=== PATIENT | female | born 1950 | race Caucasian/White ===

== ENCOUNTER 2018-02-23 18:01 | Inpatient (IN) | payer OTHER ==
[~2018-02-23] VITALS: Ht 161.3 cm; Wt 121.0 kg
[~2018-02-23 18:01] MED LIST: ADVAIR 250/501 DISK IH; ALBUTEROL SULF8.5 GM IH; ALDACTONE25 MG PO; ALL DAY ALLERGY10 MG PO; ASCORBIC ACID500 M3 PO; AZELASTINE137 MCG/0. BOTH NARES; BUMETANIDE1 MG PO; BUMEX1 MG PO; CALCIUM 600+D31 EACH PO; CARTIA XT120 MG PO; CEPHALEXIN500 MG PO; COUMADIN10 MG PO; COUMADIN3 MG PO; COUMADIN5 MG PO; COUMADIN6 MG PO; CYCLOBENZAPRINE10 MG PO; DIAMOX250 MG PO; DIGOXIN250 MCG PO; DILTIAZEM 24HR240 MG PO; ELIQUIS5 MG PO; FLONASE16 G1 BOTH NARES; FUROSEMIDE20 MG PO; GABAPENTIN100 MG PO; K-DUR20 MEQ PO; LASIX20 MG PO; LASIX40 MG PO; LASIX80 MG PO; LIDOCAINE700 MG TD; LO-DOSE ASPIRIN81 M1 PO; LOSARTAN POTASS50 MG PO; LUNESTA3 MG PO; LYRICA100 MG PO; METFORMIN HCL500 MG PO; METOLAZONE2.5 MG PO; METOPROLOL SUC100 MG PO; METOPROLOL SUC200 MG PO; MULTIPLE VITAM1 EACH PO; NEXIUM20 MG PO; NEXIUM40 MG PO; OMEGA-3 1,0001 EACH PO; OXAYDO5 MG PO; OXYCODONE HCL10 MG PO; OXYCODONE HCL5 MG PO; POTASSIUM CHLO20 ME2 PO; PRAVACHOL80 MG PO; REMEDY ANTIFUNG85 GM TP; RESTASIS MULTI5.5 ML BOTH EYES; ROXICODONE5 MG PO; SINGULAIR10 MG PO; SYMBICORT60 INHALAT IH; TOPROL XL50 MG PO; TYLENOL EXTRA500 MG PO; VITAMIN C1000 MG PO; VITAMIN E200 UNI5 PO; WARFARIN SODIUM1 MG PO; WARFARIN SODIUM6 MG PO; ZOLPIDEM TARTRAT5 MG PO
[2018-02-23 18:34] LABS: BASOPHIL (%) 0.2 % (0-1); EOSINOPHIL (%) 0.4 % (0-5); EOSINOPHIL COUNT 0.1 K/uL (0-0.3); HEMOGLOBIN 13.1 G/DL (11.9-15.5); IMMATURE GRANULOCYTE (%) 0.3 % (0.0-0.7); LYMPHOCYTE (%) 9.3 % (15-42); LYMPHOCYTE COUNT 1.2 K/uL (1.0-2.8); MCH 28.6 PG (29.0-34.0); MCHC 30.5 G/DL (30.0-36.0); MCV 93.9 FL (83-99); MONOCYTE (%) 8.6 % (3-12); MONOCYTE COUNT 1.1 K/uL (0-0.8); NEUTROPHIL (%) 81.2 % (45-76); NEUTROPHIL COUNT 10.3 K/uL (1.8-6.4); PLATELET COUNT 248 K/uL (156-360); RBC DIS.WIDTH-CV 17.6 % (11.8-14.6); RBC DIS.WIDTH-SD 60.2 % (39-53); RED BLOOD COUNT 4.58 M/uL (3.80-5.20); WHITE BLOOD COUNT 12.6 K/uL (4.1-10.2)
[2018-02-23 18:46] LABS: ALBUMIN 3.9 g/dL (3.2-4.8); CHLORIDE 111 mEq/L (99-109); POTASSIUM 5.5 mEq/L (3.7-5.4); SODIUM 141 mEq/L (136-147)
[2018-02-23 18:48] LABS: GLUCOSE 106 mg/dL (70-99); TOTAL PROTEIN 7.2 g/dL (6.4-8.3)
[2018-02-23 18:50] LABS: TOTAL BILIRUBIN 0.9 mg/dL (0.0-1.0)
[2018-02-23 18:52] LABS: ALKALINE PHOSPHATASE 90 IU/L (3-129); CREATININE 1.3 mg/dL (0.6-1.3); GFR ESTIMATE (CALCULATED) 43 mL/min/
[2018-02-23 18:53] LABS: UREA NITROGEN (BUN) 34 mg/dL (9-23)
[2018-02-23 18:54] LABS: AST (GOT) 16 IU/L (2-34)
[2018-02-23 18:55] LABS: ALT (GPT) 13 IU/L (3-49)
[2018-02-23 18:58] LABS: TROP-I INTERPRETATION NEGATIVE; TROPONIN-I 0.02 ng/mL (0.0-0.30)
[2018-02-23 19:02] LABS: PTT 53.2 SEC (25-37)
[2018-02-23 19:38] LABS: INTER. NORMALIZED RATIO 8.4
[2018-02-23] MEDS ORDERED: DIAMOX250 MG PO (20:30)
[2018-02-23] MEDS ORDERED: METOLAZONE2.5 MG PO (20:37)
[2018-02-23] MEDS ORDERED: K-DUR20 MEQ PO (20:40)
[2018-02-23] MEDS ORDERED: ALDACTONE25 MG PO (20:41)
[2018-02-23] MEDS ORDERED: ANORO ELLIPTA1 EACH IH (20:43)
[2018-02-23] MEDS ORDERED: VITAMIN D31000 UNIT PO (20:44)
[2018-02-23] MEDS ORDERED: ZOFRAN4 MG PO (20:44)
[2018-02-23] MEDS ORDERED: FISH OIL 1,0001 EAC7 PO (20:45)
[2018-02-23] MEDS ORDERED: VITAMIN C1000 MG PO (20:45)
[2018-02-23] MEDS ORDERED: ZANTAC300 MG PO (20:45)
[2018-02-23] MEDS ORDERED: COZAAR25 MG PO ×2 (20:47)
[2018-02-23] MEDS ORDERED: PROVENTIL,2.5 MG/3 M IH (20:48)
[2018-02-23 21:11] LABS: APPEARANCE CLEAR ((CLEAR)); BILIRUBIN NEGATIVE; BLOOD NEGATIVE; COLOR YELLOW ((YELLOW)); GLUCOSE (STRIP) NEGATIVE; KETONES NEGATIVE; LEUKOCYTES SMALL; NITRITE NEGATIVE; PROTEIN (STRIP) NEGATIVE; SPECIFIC GRAVITY 1.019 (1.000-1.030); UROBILINOGEN 0.2 MG/DL (0.2-1.0)
[2018-02-23 21:38] LABS: BACTERIA RARE /HPF; EPITHELIAL CELLS RARE /HPF; HYALINE CASTS 30-40 /LPF; MUCUS TRACE /LPF; RED BLOOD CELLS 0-5 /HPF (0-5); UCUL ADDED? YES
[2018-02-24 00:15] VITALS: BP 125/73
[2018-02-24 04:12] VITALS: BP 102/57
[2018-02-24 05:51] LABS: HEMATOCRIT 39.2 % (36.0-46.0); HEMOGLOBIN 11.7 G/DL (11.9-15.5); MCH 28.3 PG (29.0-34.0); MCHC 29.8 G/DL (30.0-36.0); MCV 94.7 FL (83-99); PLATELET COUNT 200 K/uL (156-360); RBC DIS.WIDTH-CV 17.8 % (11.8-14.6); RBC DIS.WIDTH-SD 61.7 % (39-53); RED BLOOD COUNT 4.14 M/uL (3.80-5.20); WHITE BLOOD COUNT 8.8 K/uL (4.1-10.2)
[2018-02-24 06:23] LABS: ALBUMIN 3.3 G/DL (3.2-4.8); ALKALINE PHOSPHATASE 66 IU/L (3-129); ALT (GPT) 10 IU/L (3-49); AST (GOT) 13 IU/L (2-34); CHLORIDE 112 MEQ/L (99-109); CREATININE 1.5 MG/DL (0.6-1.3); GFR ESTIMATE (CALCULATED) 37 mL/min/; GLUCOSE 85 mg/dL (70-99); POTASSIUM 5.1 MEQ/L (3.7-5.4); SODIUM 142 MEQ/L (136-147); TOTAL BILIRUBIN 0.8 MG/DL (0.0-1.0); UREA NITROGEN (BUN) 39 mg/dL (9-23)
[2018-02-24 06:54] LABS: INTER. NORMALIZED RATIO 7.1
[2018-02-24 07:58] VITALS: BP 87/47
[2018-02-24 12:25] VITALS: BP 99/55
[2018-02-24 16:22] VITALS: BP 97/61
[2018-02-24 19:18] VITALS: BP 135/62
[2018-02-25] VITALS (8 sets, daily range): BP systolic 101–147; BP diastolic 60–99
[2018-02-25 06:53] LABS: HEMATOCRIT 39.1 % (36.0-46.0); HEMOGLOBIN 11.8 G/DL (11.9-15.5); MCH 28.7 PG (29.0-34.0); MCHC 30.2 G/DL (30.0-36.0); MCV 95.1 FL (83-99); PLATELET COUNT 200 K/uL (156-360); RBC DIS.WIDTH-CV 17.8 % (11.8-14.6); RBC DIS.WIDTH-SD 61.3 % (39-53); RED BLOOD COUNT 4.11 M/uL (3.80-5.20); WHITE BLOOD COUNT 8.4 K/uL (4.1-10.2)
[2018-02-25 07:05] LABS: INTER. NORMALIZED RATIO 3.8
[2018-02-25 07:21] LABS: CHLORIDE 110 MEQ/L (99-109); CREATININE 1.3 MG/DL (0.6-1.3); GFR ESTIMATE (CALCULATED) 43 mL/min/; GLUCOSE 102 mg/dL (70-99); POTASSIUM 4.7 MEQ/L (3.7-5.4); SODIUM 142 MEQ/L (136-147); UREA NITROGEN (BUN) 37 mg/dL (9-23)
[2018-02-26 04:00] VITALS: BP 109/55
[2018-02-26 06:43] LABS: INTER. NORMALIZED RATIO 2.9
[2018-02-26 07:26] VITALS: BP 96/53
[2018-02-26 12:05] VITALS: BP 87/53
[2018-02-26 15:49] VITALS: BP 127/57
[2018-02-26 20:16] VITALS: BP 111/51
[2018-02-27] VITALS (7 sets, daily range): BP systolic 109–124; BP diastolic 55–65
[2018-02-27 05:43] LABS: BASOPHIL (%) 0.4 % (0-1); EOSINOPHIL (%) 2.8 % (0-5); EOSINOPHIL COUNT 0.2 K/uL (0-0.3); HEMATOCRIT 37.1 % (36.0-46.0); HEMOGLOBIN 11.3 G/DL (11.9-15.5); IMMATURE GRANULOCYTE (%) 0.6 % (0.0-0.7); LYMPHOCYTE (%) 17.3 % (15-42); LYMPHOCYTE COUNT 1.2 K/uL (1.0-2.8); MCH 27.8 PG (29.0-34.0); MCHC 30.5 G/DL (30.0-36.0); MCV 91.4 FL (83-99); MONOCYTE (%) 11.2 % (3-12); MONOCYTE COUNT 0.8 K/uL (0-0.8); NEUTROPHIL (%) 67.7 % (45-76); NEUTROPHIL COUNT 4.7 K/uL (1.8-6.4); PLATELET COUNT 187 K/uL (156-360); RBC DIS.WIDTH-CV 16.4 % (11.8-14.6); RBC DIS.WIDTH-SD 55.8 % (39-53); RED BLOOD COUNT 4.06 M/uL (3.80-5.20); WHITE BLOOD COUNT 6.9 K/uL (4.1-10.2)
[2018-02-27 05:45] LABS: INTER. NORMALIZED RATIO 2.3
[2018-02-27 06:17] LABS: CHLORIDE 101 MEQ/L (99-109); CREATININE 1.1 MG/DL (0.6-1.3); GFR ESTIMATE (CALCULATED) 52 mL/min/; GLUCOSE 95 mg/dL (70-99); POTASSIUM 3.8 MEQ/L (3.7-5.4); SODIUM 138 MEQ/L (136-147); UREA NITROGEN (BUN) 31 mg/dL (9-23)
[2018-02-28 03:11] VITALS: BP 121/60
[2018-02-28 06:08] LABS: INTER. NORMALIZED RATIO 1.6
[2018-02-28 06:22] LABS: CHLORIDE 99 MEQ/L (99-109); CREATININE 1.1 MG/DL (0.6-1.3); GFR ESTIMATE (CALCULATED) 52 mL/min/; GLUCOSE 94 mg/dL (70-99); SODIUM 141 MEQ/L (136-147); UREA NITROGEN (BUN) 27 mg/dL (9-23)
[2018-02-28 08:41] VITALS: BP 147/69
[2018-02-28 11:45] VITALS: BP 117/59
[2018-02-28 15:58] VITALS: BP 111/58
[2018-02-28 18:36] LABS: TYPE OF FLUID PLEURAL
[2018-02-28 19:18] VITALS: BP 127/67
[2018-02-28 20:08] LABS: APPEARANCE CLEAR-YELLOW; BODY FLUID EOSINOPHILS 0 % (0-25); BODY FLUID RBC'S < 1000 /MM^3 (0-100); BODY FLUID WBC'S 117 /MM^3 (0-500); MONONUCLEAR WBC'S 42 %; POLYNUCLEAR WBC'S 58 % (0-25)
[2018-02-28 21:18] LABS: BODY FLUID GLUCOSE 122 MG/DL; BODY FLUID LDH 65 IU/L; BODY FLUID PROTEIN < 3.0 G/DL
[2018-02-28 23:55] VITALS: BP 126/66
[2018-03-01 03:52] VITALS: BP 121/69
[2018-03-01 05:40] LABS: INTER. NORMALIZED RATIO 1.5
[2018-03-01 07:35] VITALS: BP 113/54
[2018-03-01 11:30] VITALS: BP 113/57
[2018-03-01 11:42] LABS: CHLORIDE 91 MEQ/L (99-109); CREATININE 1.1 MG/DL (0.6-1.3); GFR ESTIMATE (CALCULATED) 52 mL/min/; POTASSIUM 3.7 MEQ/L (3.7-5.4); SODIUM 135 MEQ/L (136-147); UREA NITROGEN (BUN) 30 mg/dL (9-23)
[2018-03-01 11:56] LABS: GLUCOSE 233 mg/dL (70-99)
[2018-03-01 15:51] VITALS: BP 121/53
[2018-03-01 19:24] VITALS: BP 122/73
[2018-03-02 00:15] VITALS: BP 113/59
[2018-03-02 04:18] VITALS: BP 113/53
[2018-03-02 06:23] LABS: INTER. NORMALIZED RATIO 1.7
[2018-03-02 06:39] LABS: CHLORIDE 92 MEQ/L (99-109); CREATININE 1.3 MG/DL (0.6-1.3); GFR ESTIMATE (CALCULATED) 43 mL/min/; GLUCOSE 133 mg/dL (70-99); POTASSIUM 3.5 MEQ/L (3.7-5.4); SODIUM 139 MEQ/L (136-147); UREA NITROGEN (BUN) 33 mg/dL (9-23)
[2018-03-02 09:02] VITALS: BP 113/56
[2018-03-02 16:31] VITALS: BP 119/56
[2018-03-02 19:22] VITALS: BP 130/61
[2018-03-02 23:43] VITALS: BP 131/60
[2018-03-03 04:13] VITALS: BP 133/61
[2018-03-03 06:43] LABS: INTER. NORMALIZED RATIO 1.9
[2018-03-03 06:56] LABS: CHLORIDE 91 MEQ/L (99-109); GFR ESTIMATE (CALCULATED) 58 mL/min/; GLUCOSE 107 mg/dL (70-99); POTASSIUM 3.6 MEQ/L (3.7-5.4); SODIUM 138 MEQ/L (136-147); UREA NITROGEN (BUN) 34 mg/dL (9-23)
[2018-03-03 08:11] VITALS: BP 115/65
[2018-03-03 11:44] VITALS: BP 120/58
[2018-03-03 16:04] VITALS: BP 116/68
[2018-03-03 19:48] VITALS: BP 122/68
[2018-03-04] VITALS (7 sets, daily range): BP systolic 116–146; BP diastolic 56–87
[2018-03-04 06:04] LABS: INTER. NORMALIZED RATIO 2.4
[2018-03-04 06:25] LABS: CHLORIDE 90 MEQ/L (99-109); CREATININE 1.4 MG/DL (0.6-1.3); GFR ESTIMATE (CALCULATED) 40 mL/min/; GLUCOSE 104 mg/dL (70-99); MAGNESIUM 1.6 mg/dl (1.3-2.7); POTASSIUM 3.5 MEQ/L (3.7-5.4); SODIUM 138 MEQ/L (136-147); UREA NITROGEN (BUN) 42 mg/dL (9-23)
[2018-03-05 05:27] LABS: BASOPHIL (%) 0.2 % (0-1); EOSINOPHIL (%) 0.4 % (0-5); EOSINOPHIL COUNT 0.1 K/uL (0-0.3); HEMATOCRIT 39.4 % (36.0-46.0); HEMOGLOBIN 12.3 G/DL (11.9-15.5); IMMATURE GRANULOCYTE (%) 0.9 % (0.0-0.7); LYMPHOCYTE (%) 15.9 % (15-42); LYMPHOCYTE COUNT 2.1 K/uL (1.0-2.8); MCH 28.4 PG (29.0-34.0); MCHC 31.2 G/DL (30.0-36.0); MONOCYTE (%) 7.4 % (3-12); NEUTROPHIL (%) 75.2 % (45-76); NEUTROPHIL COUNT 9.8 K/uL (1.8-6.4); RBC DIS.WIDTH-CV 15.7 % (11.8-14.6); RBC DIS.WIDTH-SD 52.5 % (39-53); RED BLOOD COUNT 4.33 M/uL (3.80-5.20)
[2018-03-05 05:40] LABS: PLATELET COUNT 265 K/uL (156-360)
[2018-03-05 06:01] LABS: CHLORIDE 94 MEQ/L (99-109); CREATININE 1.1 MG/DL (0.6-1.3); GFR ESTIMATE (CALCULATED) 52 mL/min/; GLUCOSE 107 mg/dL (70-99); SODIUM 139 MEQ/L (136-147); UREA NITROGEN (BUN) 39 mg/dL (9-23)
[2018-03-05 06:03] LABS: MAGNESIUM 2.2 mg/dl (1.3-2.7)
[2018-03-05 06:05] LABS: INTER. NORMALIZED RATIO 2.6
[2018-03-05 08:18] VITALS: BP 140/61
[2018-03-05] MEDS ORDERED: DIGOXIN125 MCG PO (08:51)
[2018-03-05] MEDS ORDERED: WARFARIN SODIU7.5 MG PO (08:59)
[2018-03-05] MEDS ORDERED: PREDNISONE10 MG PO (09:24)
[2018-03-05] MEDS ORDERED: METOPROLOL SUCC50 MG PO (09:36)
[2018-03-05] MEDS ORDERED: LOSARTAN POTASS25 MG PO (09:38)
[2018-03-06 23:29] LABS: BODY FLUID PH 8.2 (())
== END 2018-03-05 12:23 | disposition home health service (06) | DRG 190 ==
LOC: EME 18:01 → 5SOUTH 21:37 → EDOF 21:37 → ENRESERV 21:40 → 5SOUTH 23:43
PROVIDERS: Emergency Medicine; Hospitalist; Internal Medicine; Internal Medicine Cardiovascular Disease; Internal Medicine Nephrology; Physician Assistant
DX: J44.1 Chronic obstructive pulmonary disease with (acute) exacerbation (principal); J96.21 Acute and chronic respiratory failure with hypoxia; I13.0 Hypertensive heart and chronic kidney disease with heart failure and stage 1 through stage 4 chronic kidney disease, or unspecified chronic kidney disease; I50.33 Acute on chronic diastolic (congestive) heart failure; T50.2X5A Adverse effect of carbonic-anhydrase inhibitors, benzothiadiazides and other diuretics, initial encounter; I50.82 Biventricular heart failure; N18.3 Chronic kidney disease, stage 3 (moderate); N17.9 Acute kidney failure, unspecified; I95.9 Hypotension, unspecified; Z99.81 Dependence on supplemental oxygen; J90 Pleural effusion, not elsewhere classified; R18.8 Other ascites; E87.5 Hyperkalemia; D68.32 Hemorrhagic disorder due to extrinsic circulating anticoagulants; R31.0 Gross hematuria; T45.515A Adverse effect of anticoagulants, initial encounter; I27.29 Other secondary pulmonary hypertension; I08.1 Rheumatic disorders of both mitral and tricuspid valves; I27.81 Cor pulmonale (chronic); J44.0 Chronic obstructive pulmonary disease with (acute) lower respiratory infection; J20.9 Acute bronchitis, unspecified; E11.22 Type 2 diabetes mellitus with diabetic chronic kidney disease; E11.40 Type 2 diabetes mellitus with diabetic neuropathy, unspecified; E86.9 Volume depletion, unspecified; N39.0 Urinary tract infection, site not specified; B96.20 Unspecified Escherichia coli [E. coli] as the cause of diseases classified elsewhere; J98.11 Atelectasis; I48.2 Chronic atrial fibrillation; E78.5 Hyperlipidemia, unspecified; K21.9 Gastro-esophageal reflux disease without esophagitis; M79.7 Fibromyalgia; G89.4 Chronic pain syndrome; G47.33 Obstructive sleep apnea (adult) (pediatric); E66.01 Morbid (severe) obesity due to excess calories; Z68.42 Body mass index [BMI] 45.0-49.9, adult; Z87.891 Personal history of nicotine dependence; Z79.01 Long term (current) use of anticoagulants; Z79.51 Long term (current) use of inhaled steroids; Z79.82 Long term (current) use of aspirin; Z79.84 Long term (current) use of oral hypoglycemic drugs; Z86.73 Personal history of transient ischemic attack (TIA), and cerebral infarction without residual deficits
CPT/HCPCS: 71045; 71046; 71250; 76770; 76942; 80048; 80053; 81003; 82945; 82948; 83605; 83615 91; 83735; 83880; 83986 90; 84157; 84484; 85025; 85027; 85610; 85730; 87070; 87075; 87077; 87086; 87186; 87205; 88108; 88305; 89051; 93005; 93306; 94640; 94640 76; 94660; 94799; 97530 GO; 97530 GP; 99202; 99281; 99285; A6214; J0295; J0696; J1160; J1815; J1940; J3475; J7050; J7512